=== PATIENT | female | born 1985 | race Caucasian/White ===

== ENCOUNTER 2019-06-04 20:55 | Emergency (ER) | payer OTHER ==
[2019-06-04 21:06] VITALS: BP 134/71; PULSE 90; RESP 18; TEMP 98
--- NOTE | 2019-06-04 21:09 | ED ---
Overdose HPI - General Chief Complaint: Overdose Stated Complaint: Overdose Time Seen by Provider: 06/04/19 20:59 Source: patient, EMS, RN notes reviewed, old records reviewed Mode of arrival: EMS Limitations: no limitations - History of Present Illness Initial Comments: This is a 34-year-old female DF today. Patient is safe for evaluation regards to overdose here with overdose patient was with friends in front sounds he came unresponsiveness given neck and by EMS patient denies any other drugs or alcohol denies any significant current drug use. States this this heroin use today was very small and swelling that she has not done quite some time patient denying suicidal thoughts no other complaints MD Complaint: accidental overdose (Patient was using recreational drugs) -: minutes(s) Intent: other (Patient just wanted drug use) How Overdose Was Discovered: family/friend present at time Context: Intentional Overdose: drug/ETOH problems Context: Accidental Overdose: wanted to get high Treatments Prior to Arrival: none - Related Data Allergies Allergy/AdvReac Type Severity Reaction Status Date / Time amoxicillin AdvReac Rash/Hives Verified 06/04/19 21:07 Penicillins AdvReac Rash/Hives Verified 06/04/19 21:07 emilie AdvReac Rash/Hives Uncoded 06/04/19 21:07 Review of Systems ROS Statement: Those systems with pertinent positive or pertinent negative responses have been documented in the HPI. ROS Other: All systems not noted in ROS Statement are negative. Past Medical History Past Medical History: No Reported History History of Any Multi-Drug Resistant Organisms: None Reported Past Surgical History: Cholecystectomy, Tonsillectomy Past Psychological History: Anxiety Smoking Status: Current every day smoker Past Alcohol Use History: None Reported, Occasional Past Drug Use History: Heroin General Exam Limitations: no limitations General appearance: alert, in no apparent distress Head exam: Present: atraumatic, normocephalic, normal inspection Eye exam: Present: normal appearance, PERRL, EOMI. Absent: scleral icterus, conjunctival injection, periorbital swelling ENT exam: Present: normal exam, mucous membranes moist Neck exam: Present: normal inspection. Absent: tenderness, meningismus, lymphadenopathy Respiratory exam: Present: normal lung sounds bilaterally. Absent: respiratory distress, wheezes, rales, rhonchi, stridor Cardiovascular Exam: Present: regular rate, normal rhythm, normal heart sounds. Absent: systolic murmur, diastolic murmur, rubs, gallop, clicks GI/Abdominal exam: Present: soft, normal bowel sounds. Absent: distended, tenderness, guarding, rebound, rigid Extremities exam: Present: normal inspection, full ROM, normal capillary refill. Absent: tenderness, pedal edema, joint swelling, calf tenderness Back exam: Present: normal inspection Neurological exam: Present: alert, oriented X3, CN II-XII intact Psychiatric exam: Present: normal affect, normal mood Skin exam: Present: warm, dry, intact, normal color. Absent: rash Course Vital Signs 06/04/19 21:00 Temperature 98 F Pulse Rate 90 Respiratory 18 Rate Blood Pressure 134/71 O2 Sat by Pulse 97 Oximetry - Reevaluation(s) Reevaluation #1: 06/04/19 21:18 Medical records reviewed Reevaluation #2: 06/04/19 21:18 Patient recent medication the ER has no complaints Reevaluation #3: 06/04/19 21:18 Spoke with patient at length regarding risks of secondary to having heroin use regarding in Narcan administration. Patient understands questions are answered Medical Decision Making - Medical Decision Making 32 female here with heroin overdose requiring Narcan. Patient currently asymptomatic, has no complaints and can be discharged home - EKG Data -: EKG Interpreted by Me (EKG shows sinus rhythm rate of 95, DC 180, QRS 80, QTC 444) Disposition Clinical Impression: Drug overdose, Heroin abuse, Opioid overdose Disposition: ADMITTED IP TO THIS HOSP Condition: Fair Is patient prescribed a controlled substance at d/c from ED?: No Referrals: Miguel Angel Walters MD [Primary Care Provider] - 1-2 days
== END 2019-06-04 21:52 | disposition home or self-care (01) ==
LOC: EC 20:55
DX: T40.1X1A Poisoning by heroin, accidental (unintentional), initial encounter (principal); F11.10 Opioid abuse, uncomplicated; F17.200 Nicotine dependence, unspecified, uncomplicated; Z88.0 Allergy status to penicillin; Z91.048 Other nonmedicinal substance allergy status
CPT/HCPCS: 99284